=== PATIENT | female | born 1970 | race African-American/Black ===

== ENCOUNTER 2017-02-03 18:13 | Emergency (ER) | payer MEDICARE, MEDICAID ==
[~2017-02-03] VITALS: Ht 165.1 cm; Wt 82.0 kg
[~2017-02-03 18:13] MED LIST: AMLODIPINE BESYLATE; SIMV10TA6 PO
[2017-02-03] MEDS ORDERED: ACETAMINOPHEN 500MG TABLET PO ONE (21:30)
[2017-02-03 21:42] VITALS: BP 138/92
== END 2017-02-03 21:57 | disposition home or self-care (01) ==
LOC: ER 18:35
DX: S50.12XA Contusion of left forearm, initial encounter (principal); S50.11XA Contusion of right forearm, initial encounter; I10 Essential (primary) hypertension; E78.00 Pure hypercholesterolemia, unspecified; X58.XXXA Exposure to other specified factors, initial encounter; Y93.89 Activity, other specified; Y92.89 Other specified places as the place of occurrence of the external cause; Y99.8 Other external cause status
CPT/HCPCS: 99282

== ENCOUNTER 2017-09-08 21:45 | Emergency (ER) | payer MEDICARE, MEDICAID ==
[~2017-09-08] VITALS: Ht 160 cm; Wt 88.0 kg
[2017-09-09 00:12] VITALS: BP 145/97
== END 2017-09-09 01:47 | disposition home or self-care (01) ==
LOC: ER 09-09 01:08
DX: L02.31 Cutaneous abscess of buttock (principal); L03.317 Cellulitis of buttock; I10 Essential (primary) hypertension; Z91.040 Latex allergy status; Z90.710 Acquired absence of both cervix and uterus
CPT/HCPCS: 99283

== ENCOUNTER 2018-03-05 17:08 | Emergency (ER) | payer MEDICARE, MEDICAID ==
[~2018-03-05] VITALS: Ht 160 cm; Wt 97.0 kg
[2018-03-05] MEDS ORDERED: SODIUM CHLORIDE 0.9% 1,000 ML IV ONE (21:24)
[2018-03-05] MEDS ORDERED: ONDANSETRON HCL 4MG/2ML INJ IV STA (21:24)
[2018-03-05 21:46] LABS: EOSINOPHILS % 2.7 % (0.0-5.0); HEMOGLOBIN. 13.9 g/dL (12.0-16.0); MEAN CORPUSCULAR HEMOGLOBIN 29.7 pg (28.0-32.0); MEAN CORPUSCULAR VOLUME 87.8 fL (81.0-99.0); MEAN PLATELET VOLUME 8.5 fl (7.4-10.4); NEUTROPHILS % 52.3 % (40.0-76.0); PLATELET 207 x1000/uL (130-400); RED BLOOD CELL COUNT 4.67 mill/uL (4.2-5.4)
[2018-03-05 21:54] LABS: CHLORIDE 103 mEq/L (98-107)
[2018-03-05 22:56] LABS: CLARITY URINE CLEAR (CLEAR); COLOR URINE YELLOW (YELLOW); KETONES URINE NEGATIVE (NEGATIVE); LEUKOCYTE ESTERASE URINE NEGATIVE (NEGATIVE); NITRITE URINE NEGATIVE (NEGATIVE); OCCULT BLOOD URINE NEGATIVE (NEGATIVE); PROTEIN URINE 3+ (NEGATIVE); SPECIFIC GRAVITY URINE 1.022 (1.005-1.030); UROBILINOGEN URINE 0.2 E.U./dL (0.2-1.0)
[2018-03-05] MEDS ORDERED: ONDANSETRON HCL 4MG/2ML INJ IV ONE (23:30)
[2018-03-05] MEDS ORDERED: MORPHINE SULFATE 4 MG/ML CPJ (NOT FOR IM USE) IV ONE (23:30)
[2018-03-06 01:49] VITALS: BP 112/67
[2018-03-06] MEDS ORDERED: IOHEXOL-300 100 ML BOTTLE ONE (11:35)
== END 2018-03-06 01:55 | disposition home or self-care (01) ==
LOC: ER 17:08
DX: R10.9 Unspecified abdominal pain (principal); R19.7 Diarrhea, unspecified; S40.022A Contusion of left upper arm, initial encounter; S40.021A Contusion of right upper arm, initial encounter; N13.30 Unspecified hydronephrosis; R11.2 Nausea with vomiting, unspecified; N13.4 Hydroureter; I10 Essential (primary) hypertension; W19.XXXA Unspecified fall, initial encounter; Y93.9 Activity, unspecified; Y92.9 Unspecified place or not applicable; Z90.710 Acquired absence of both cervix and uterus; Z91.040 Latex allergy status
CPT/HCPCS: 36415; 74177; 80053; 81003; 81025; 85025; 85610; 96361; 96374; 96375; 96376; 99285; J2270; J2405; J7030; Q9967

== ENCOUNTER 2024-01-24 00:02 | Emergency (ER) | payer MEDICARE, MEDICAID ==
[~2024-01-24] VITALS: Ht 160 cm; Wt 105.6 kg
[~2024-01-24 00:02] MED LIST changes: -SIMV10TA6 PO; +SIMV10TA97 PO
[2024-01-24 00:06] VITALS: PULSE 107; RESP 20; O2SAT 100
[2024-01-24 00:16] VITALS: BP 127/82; TEMP 98.3
[2024-01-24] MEDS ORDERED: TC1U15 TP (01:28)
[2024-01-24] MEDS ORDERED: MICO45CR16 VG (01:28)
== END 2024-01-24 01:43 | disposition home or self-care (01) ==
LOC: ER 00:02
DX: N76.0 Acute vaginitis (principal); I10 Essential (primary) hypertension; Z76.0 Encounter for issue of repeat prescription; Z90.710 Acquired absence of both cervix and uterus; Z79.899 Other long term (current) drug therapy; Z98.890 Other specified postprocedural states
CPT/HCPCS: 99283